=== PATIENT | female | born 2000 | race African-American/Black ===

== ENCOUNTER 2020-07-27 12:13 | Emergency (ER) | payer MEDICAID, OTHER ==
[~2020-07-27] VITALS: Ht 162.6 cm; Wt 146.1 kg
[~2020-07-27 12:13] MED LIST: CILOXAN 0.3% O1 DROP RIGHT EYE; IBUPROFEN600 MG ORAL; NITROFURANTOIN100 M2 ORAL; NKM; PHENAZOPYRIDIN200 MG ORAL
[2020-07-27 12:26] VITALS: BP 124/76
--- NOTE | 2020-07-27 12:26 | NUR ---
ED Nurse Note: Pt walked in to ED from home c/o right hand pain and swelling, unk cause x1 week ago. Denies fall/ trauma/ injury to the area. AAOx4, verbally responsive. No SOB, on room air. ERPA at bedside.
--- NOTE | 2020-07-27 12:39 | Emergency Room Report ---
History of Present Illness General Chief Complaint: Pain Source: Patient Present Illness HPI 20-year-old female with no known significant past medical history here complaining of over 1 week of right hand and wrist pain without any fall or injury. 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 Complains of minimal tingling. Has not taken medication for symptom relief. Patient is neurovascularly intact. Denies chest pain, shortness of breath, headache and dizziness. Denies . Allergies: Coded Allergies: No Known Allergies (Unverified , 10/14/13) COVID-19 Screening Contact w/high risk pt: No Experienced COVID-19 symptoms?: No COVID-19 Testing performed ORE GRADER: No Patient History Past Medical History: see triage record Past Surgical History: none Pertinent Family History: none Now: No Immunizations: UTD Reviewed Nursing Documentation: PMH: Agreed; PSxH: Agreed Nursing Documentation-PMH Hx Asthma: Yes Review of Systems All Other Systems: negative except mentioned in HPI Physical Exam Vital Signs Date Time Temp Pulse Resp B/P (MAP) Pulse Ox O2 Delivery O2 Flow Rate FiO2 07/27/20 12:14 98.4 92 16 124/76 (92) 98 Room Air Sp02 EP Interpretation: reviewed, normal General Appearance: no apparent distress, alert, GCS 15, non-toxic Head: normocephalic, atraumatic Eyes: bilateral eye normal inspection, bilateral eye PERRL Neck: supple Respiratory: no rhonchi, no retraction Cardiovascular #1: no murmur Cardiovascular #2: 2+ radial (R), 2+ radial (L) Musculoskeletal: back normal, swelling - Right hand, other - Neurovascularly intact, Phalen sign is positive Neurologic: alert, motor strength/tone normal, oriented x3, sensory intact, responsive, speech normal Psychiatric: judgement/insight normal, memory normal, mood/affect normal, no suicidal/homicidal ideation Skin: no rash Lymphatic: no adenopathy Procedures Splinting Splinting : Consent: Verbal Location: Right hand and wrist Pre-Made Type: velcro Splint: wrist Pre-Proc Neuro Vasc Exam: normal Post-Proc Neuro Vasc Exam: normal Patient Tolerated: Well Complications: None Medical Decision Making PA Attestation All diagnoses and treatment plans were reviewed and discussed with my supervising physician Dr. Adrian Diagnostic Impression: Primary Impression: Carpal tunnel syndrome Additional Impression: Hand sprain ER Course 20-year-old female with no known significant past medical history here complaining of over 1 week of right hand and wrist pain without any fall or injury. 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 Complains of minimal tingling. Has not taken medication for symptom relief. Patient is neurovascularly intact. Denies chest pain, shortness of breath, headache and dizziness. Denies . Ddx considered but are not limited to: Hand sprain, hand sprain, hand fracture Vital signs: are WNL, pt. is afebrile H&PE are most consistent with : Carpal tunnel syndrome, hand sprain ORDERS: Hand x-ray, Robaxin, Voltaren gel, Motrin ED INTERVENTIONS: Motrin, Robaxin, Velcro wrist splint was applied DISCHARGE: At this time pt. is stable for d/c to home. Will provide printed patient care instructions, and any necessary prescriptions. Care plan and follow up instructions have been discussed with the patient prior to discharge. Take medication as directed. Follow-up with primary care provider, avoid strenuous physical activity to the affected side, if worsening symptoms return to the emergency room Other X-Ray Diagnostic Results Other X-Ray Diagnostic Results : X-Ray ordered: Right hand # of Views/Limited Vs Complete: 3 View Indication: Swelling EP Interpretation: Yes AUNG Xray: Interpretation reviewed, by supervising MD, and agrees with findings. Interpretation: no dislocation, no soft tissue swelling, no fractures Impression: No acute disease Electronically Signed by: Julianne Ricci PA-C Last Vital Signs Date Time Temp Pulse Resp B/P (MAP) Pulse Ox O2 Delivery O2 Flow Rate FiO2 07/27/20 12:26 98.4 92 16 124/76 98 Room Air Disposition: HOME, SELF-CARE Condition: Stable Scripts Diclofenac Sodium (VOLTAREN) 100 Gm Gel..gram. 2 GM TP TID, #100 GM Prov: Julianne Lubin 07/27/20 Ibuprofen (Ibu) 800 Mg Tablet 800 MG PO TID, #30 TAB Prov: Julianne Lubin 07/27/20 Methocarbamol* (ROBAXIN-500*) 500 Mg Tablet 500 MG ORAL QID PRN for For Pain, #20 TAB 0 Refills Prov: Julianne Lbuin 07/27/20 Patient Instructions: Carpal Tunnel Syndrome, [id number], Edema, [id number] Additional Instructions: Take medication as directed. Follow-up with primary care provider, avoid strenuous physical activity to the affected side, if worsening symptoms return to the emergency room Julianne Lubin Jul 27, 2020 12:39
[2020-07-27] MEDS ORDERED: ROBAXIN-500MG ORAL (12:41)
[2020-07-27] MEDS ORDERED: IBU800 MG PO (12:41)
[2020-07-27] MEDS ORDERED: VOLTAREN100 G1 TP (12:41)
[2020-07-27] MEDS ORDERED: Methocarbamol 750mg tab ORAL ONE (12:45)
--- NOTE | 2020-07-27 12:50 | NUR ---
ED Nurse Note: Xray at bedside.
[2020-07-27 13:28] VITALS: BP 124/76
--- NOTE | 2020-07-27 13:28 | NUR ---
ED Nurse Note: Pt cleared by ERPA for discharge. DC instructions/prescription was given and explained to pt and verbalized understanding of teachings. All medical deviecs such as ID band removed. Pt is AAO x4, ambulatory and left with all personal belongings.
--- NOTE | 2020-07-27 17:21 | Diagnostic Imaging Report ---
Indication: Right hand pain Technique: 3 views right hand Comparison: none Findings: No acute fracture. No dislocation. Joint spaces are preserved. Impression: Negative
== END 2020-07-27 13:28 | disposition home or self-care (01) ==
LOC: EDBD 12:13 → EMR 12:45
DX: G56.01 Carpal tunnel syndrome, right upper limb (principal); S63.91XA Sprain of unspecified part of right wrist and hand, initial encounter; X58.XXXA Exposure to other specified factors, initial encounter; Y92.9 Unspecified place or not applicable; J45.909 Unspecified asthma, uncomplicated
CPT/HCPCS: 29125; 73130; Z7502; 99283